=== PATIENT | male | born 1975 | race Caucasian/White ===

== ENCOUNTER 2023-03-17 17:18 | Emergency (ER) | payer BC, OTHER ==
[~2023-03-17] VITALS: Ht 167.6 cm; Wt 66.2 kg
[2023-03-17 17:21] VITALS: BP 154/99
--- NOTE | 2023-03-17 17:28 | NUR ---
BLOOD GLUCOSE 121
--- NOTE | 2023-03-17 17:39 | NUR ---
CODE BRAIN ACTIVATED - CT SCAN CALLED
--- NOTE | 2023-03-17 17:40 | NUR ---
PATIENT TO CT SCAN
[2023-03-17 18:22] LABS: BASOPHILS % (AUTO) 0.5 % (0.0-2.0); EOSINOPHILS # (AUTO) 0.1 K/uL (0-0.4); EOSINOPHILS % (AUTO) 1.1 % (0.0-4.0); HEMATOCRIT 44.3 % (36-52); LYMPHOCYTES # (AUTO) 2.1 K/uL (2.0-11.5); LYMPHOCYTES % (AUTO) 33.5 % (20.5-51.1); MEAN CORPUSCULAR HEMOGLOBIN 31 pg (27-31); MEAN CORPUSCULAR HGB CONC 34 g/dL (33-37); MEAN CORPUSCULAR VOLUME 92.7 fL (80-94); MONOCYTES # (AUTO) 0.6 K/uL (0.8-1.0); MONOCYTES % (AUTO) 8.9 % (1.7-9.3); NEUTROPHILS # (AUTO) 3.5 K/uL (1.8-7.7); PLATELET COUNT (AUTO) 275 K/uL (140-450); RED BLOOD CELL COUNT(AUTO) 4.78 MIL/uL (4.20-6.10); RED CELL DISTRIBUTION WIDTH 14.5 % (11.6-13.7); WHITE BLOOD COUNT (AUTO) 6.3 K/uL (4.8-10.8)
[2023-03-17 18:33] LABS: ALBUMIN 4.1 g/dL (3.4-5.0); ANION GAP 9.9 (8-16); ASPARTATE AMINOTRANSFERASE 28 U/L (15-37); CARBON DIOXIDE 26.7 mmol/L (21-32); CHLORIDE 106 mmol/L (98-107); CREATININE 1.6 mg/dL (0.6-1.3); GFR ARICAN-AMERICAN 59 mL/min (>90); GLUCOSE 122 mg/dL (74-106); POTASSIUM 3.6 mmol/L (3.5-5.1); SODIUM SERUM 139 mmol/L (136-145); TOTAL BILIRUBIN 0.3 mg/dL (0.0-1.0); UREA NITROGEN, BLOOD 24 mg/dL (7-18)
--- NOTE | 2023-03-17 19:00 | NUR ---
at the bedside
--- NOTE | 2023-03-17 19:30 | NUR ---
pt is awake and alert, waiting for result from Dr. No acute distress noted.
[2023-03-17] MEDS ORDERED: PRED20TA5 PO (20:14)
[2023-03-17] MEDS ORDERED: PEG15DRO10 OP (20:14)
[2023-03-17 20:20] VITALS: BP 126/76
--- NOTE | 2023-03-17 20:38 | NUR ---
Patient discharged with v/s stable. Written and verbal after care instructions given and explained. Patient alert, oriented and verbalized understanding of instructions. Ambulatory with steady gait. All questions addressed prior to discharge. ID band removed. Patient advised to follow up with PMD. Rx of prednisone and glycerin given. Patient educated on indication of medication including possible reaction and side effects. Opportunity to ask questions provided and answered.
== END 2023-03-17 20:20 | disposition home or self-care (01) ==
LOC: MED 17:18
DX: G51.0 Bell's palsy (principal)
CPT/HCPCS: 36415; 70450; 80053; 82948; 84484; 85025; 99284; J7030; 99285